=== PATIENT | female | born 1970 | race Caucasian/White ===

== ENCOUNTER 2016-06-14 13:33 | Outpatient (CLI) | payer MEDICAID | END 2016-06-14 23:59 | DX: I10 Essential (primary) hypertension (principal) ==

== ENCOUNTER 2017-03-15 09:48 | Outpatient (CLI) | payer MEDICAID ==
[2017-03-15 13:12] LABS: BASOPHILS # (AUTO) 0.1 10^3/uL (0.0-0.1); BASOPHILS % (AUTO) 0.7 %; EOSINOPHILS # (AUTO) 0.1 10^3/uL (0.0-0.7); EOSINOPHILS % (AUTO) 1.3 %; HCT - HEMATOCRIT 41.3 % (37.0-47.0); HGB - HEMOGLOBIN 14.3 g/dL (12.0-16.0); LYMPHOCYTES # (AUTO) 2.4 10^3/uL (1.5-3.5); LYMPHOCYTES % (AUTO) 30.6 %; MEAN CORPUSCULAR HEMOGLOBIN 34.3 pg (27.0-31.0); MEAN CORPUSCULAR HGB CONC 34.5 g/dL (32.0-36.0); MEAN CORPUSCULAR VOLUME 99.2 fL (81.0-99.0); MEAN PLATELET VOLUME 8.5 fL (7.9-10.8); MONOCYTES # (AUTO) 0.6 10^3/uL (0.0-1.0); MONOCYTES % (AUTO) 7.8 %; NEUTROPHILS # (AUTO) 4.7 10^3/uL (1.5-6.6); NEUTROPHILS % (AUTO) 59.6 %; RED BLOOD COUNT 4.16 10^6/uL (4.20-5.40); RED CELL DISTRIBUTION WIDTH 13.9 % (12.0-15.0); UNCORRECTED WHITE BLOOD COUNT 7.9 x10^3/uL; WHITE BLOOD COUNT 7.9 x10^3/uL (4.8-10.8)
[2017-03-15 14:03] LABS: ALBUMIN/GLOBULIN RATIO 1.1 (1.0-2.2); BILIRUBIN,TOTAL 0.4 mg/dL (0.2-1.0); BUN - BLOOD UREA NITROGEN 5 mg/dL (6-20); CALCIUM 9.9 mg/dL (8.5-10.3); CARBON DIOXIDE - CO2 25 mmol/L (21-32); CHLORIDE 96 mmol/L (101-111); CHOL/HDL RATIO 2.8 (<4.4); CHOLESTEROL 232 mg/dL; CREATININE 0.4 mg/dL (0.4-1.0); GFR - MDRD 170 (>89); GLUCOSE 116 mg/dL (70-100); HDL CHOLESTEROL 84 mg/dL; LDL/HDL RATIO 1.6 (<4.4); POTASSIUM 3.4 mmol/L (3.5-5.0); SODIUM 132 mmol/L (135-145); TOTAL PROTEIN 8.3 g/dL (6.7-8.2); TRIGLYCERIDES 84 mg/dL; VLDL CHOLESTEROL 17 mg/dL
== END 2017-03-15 09:49 | disposition home or self-care (01) ==
LOC: LAB.N 09:48
PROVIDERS: ATTEND Family Medicine
DX: R74.0 Nonspecific elevation of levels of transaminase and lactic acid dehydrogenase [LDH] (principal); F10.10 Alcohol abuse, uncomplicated; I10 Essential (primary) hypertension
CPT/HCPCS: 36415; 80050; 80061

== ENCOUNTER 2017-05-28 11:13 | Emergency (ER) | payer MEDICAID ==
--- NOTE | 2017-05-28 12:44 | XRAY Report ---
EXAM: CHEST RADIOGRAPHY EXAM DATE: 05/28/2017 12:19 PM. CLINICAL HISTORY: Cough. COMPARISON: 08/17/2015. TECHNIQUE: 2 views. FINDINGS: Lungs/Pleura: No focal consolidation evident. No pleural effusion. No pneumothorax. Normal volumes. Mediastinum: Heart and mediastinal contours are unremarkable. Other: Cholecystectomy clips. IMPRESSION: No radiographically apparent acute abnormality in the chest. No significant change from p rior. [facility] Referring Provider Line: [phone] SITE ID: [id number]
--- NOTE | 2017-05-28 12:46 | ED Physician Documentation ---
PD HPI URI - Stated complaint Stated Complaint: ITCHY THROAT,COUGH,RIB PX - Chief complaint Chief Complaint: Resp - History obtained from History obtained from: Patient - History of Present Illness Timing duration: Days Timing details: Gradual onset, Still present Associated symptoms: Fever, Chills, Sweats, Nasal congestion, Swollen nodes, Dry cough, Chest pain (with coughing). No: Sore throat Contributing factors: No: Sick contact, Travel, Immunocompromised Improves by: Rest Worsened by: Activity, Breathing Similar symptoms before: Has not had sx before Recently seen: Not recently seen Review of Systems Constitutional: reports: Fever, Chills, Myalgias, Fatigue Nose: reports: Congestion Throat: denies: Sore throat Respiratory: reports: Cough GI: reports: Nausea. denies: Vomiting, Diarrhea Skin: denies: Rash, Lesions PD PAST MEDICAL HISTORY - Past Medical History Past Medical History: Yes Cardiovascular: Hypertension Respiratory: Asthma, COPD, Other Neuro: None Endocrine/Autoimmune: None GI: Diverticulitis DIVERSIONAL THERAPIST: None : None HEENT: None Psych: Anxiety Musculoskeletal: None Derm: None - Past Surgical History Past Surgical History: Yes General: Appendectomy /DIVERSIONAL THERAPIST: section, Hysterectomy - Present Medications Home Medications: Ambulatory Orders Medication Instructions Recorded Confirmed Albuterol [Ventolin Hfa] 1 puffs ORAL Q6HR PRN 09/01/13 05/28/17 Aspirin Chewable [St Mitch 81 mg PO DAILY 09/01/13 05/28/17 Aspirin] Cromolyn Sodium [Nasal Allergy 1 ml NS DAILY 09/01/13 05/28/17 [place]] amLODIPine [Norvasc] 10 mg PO DAILY 09/01/13 05/28/17 Loratadine 1 mg PO DAILY 08/17/15 05/28/17 hydrOXYzine pamoate [Hydroxyzine 1 mg PO DAILY 11/23/15 05/28/17 Pamoate] Benzonatate [Tessalon] 100 mg PO TID PRN #25 capsule 05/28/17 Dexamethasone [Decadron] 4 mg PO DAILY #5 tablet 05/28/17 guaiFENesin/CODEINE [Robitussin AC] 10 ml PO Q6H PRN #240 ml 05/28/17 - Allergies Allergies/Adverse Reactions: Allergies Allergy/AdvReac Type Severity Reaction Status Date / Time No Known Drug Allergies Allergy Verified 11/24/15 09:58 - Social History Does the pt smoke?: Yes Smoking Status: Current every day smoker Does the pt drink ETOH?: Yes Does the pt have substance abuse?: Yes - Immunizations Immunizations are current?: Yes - POLST Patient has POLST: No PD ED PE NORMAL - Vitals Vital signs reviewed: Yes - General General: Alert and oriented X 3, No acute distress, Well developed/nourished - HEENT HEENT: Ears normal, Pharynx benign - Neck Neck: Supple, no meningeal sign, No adenopathy - Cardiac Cardiac: RRR, No murmur - Respiratory Respiratory: Clear bilaterally - Abdomen Abdomen: Soft, Non tender - Female Female : Deferred - Rectal Rectal: Deferred - Back Back: No CVA TTP - Derm Derm: Normal color, Warm and dry, No rash Results - Vitals Vitals: Oxygen O2 Source Room air - Rads (name of study) chest Radiology: Prelim report reviewed (normal) PD MEDICAL DECISION MAKING - ED course Complexity details: considered differential, d/w patient Departure - Departure Disposition: 01 Home, Self Care Clinical Impression: Upper respiratory infection Qualifiers: URI type: unspecified URI Qualified Code(s): J06.9 - Acute upper respiratory infection, unspecified Condition: Stable Record reviewed to determine appropriate education?: Yes Instructions: ED Upper Resp Infec No Abx Tx Follow-Up: Kavin Monet MD [Primary Care Provider] - Prescriptions: Benzonatate [Tessalon] 100 mg PO TID PRN #25 capsule PRN Reason: Cough Dexamethasone [Decadron] 4 mg PO DAILY #5 tablet guaiFENesin/CODEINE [Robitussin AC] 10 ml PO Q6H PRN #240 ml PRN Reason: Cough Comments: Use your albuterol inhaler 2 puffs 4 times a day and extra times if needed for wheezing and cough. Use Decadron steroid anti-inflammatory daily for the next 5 days to reduce bronchial irritation and inflammation. This will decrease the cough and symptoms as well. Add Tessalon if needed for coughing. Drink lots of fluids and use Tylenol or ibuprofen if needed for fevers and pains. Your chest x-ray is clear without any signs of pneumonia. Discharge Date/Time: 05/28/17 13:50
[2017-05-28 13:10] VITALS: BP 116/85
[2017-05-28] MEDS ORDERED: DEXAMETHASONE 10 MG/ML VIAL PO STA (13:23)
[2017-05-28] MEDS ORDERED: CHERRY SYRUP 10 ML UDC PO ONE (13:34)
[2017-05-28] MEDS: BENZONATATE 100 MG CAPSULE PO STA ×2 (13:38→13:46)
== END 2017-05-28 13:50 | disposition home or self-care (01) ==
LOC: ED 11:13
DX: J06.9 Acute upper respiratory infection, unspecified (principal); I10 Essential (primary) hypertension
CPT/HCPCS: 71046; 99283; A9270

== ENCOUNTER 2017-08-26 08:00 | Outpatient (CLI) | payer MEDICAID ==
[2017-08-26 19:00] LABS: BASOPHILS # (AUTO) 0.1 10^3/uL (0.0-0.1); BASOPHILS % (AUTO) 0.7 %; EOSINOPHILS # (AUTO) 0.1 10^3/uL (0.0-0.7); EOSINOPHILS % (AUTO) 0.8 %; LYMPHOCYTES # (AUTO) 2.3 10^3/uL (1.5-3.5); LYMPHOCYTES % (AUTO) 24.3 %; MEAN CORPUSCULAR HEMOGLOBIN 32.3 pg (27.0-31.0); MEAN CORPUSCULAR HGB CONC 33.5 g/dL (32.0-36.0); MEAN CORPUSCULAR VOLUME 96.2 fL (81.0-99.0); MONOCYTES # (AUTO) 0.9 10^3/uL (0.0-1.0); MONOCYTES % (AUTO) 9.2 %; NEUTROPHILS # (AUTO) 6.1 10^3/uL (1.5-6.6); PLT - PLATELET COUNT 297 10^3/uL (130-450); RED BLOOD COUNT 4.65 10^6/uL (4.20-5.40); RED CELL DISTRIBUTION WIDTH 14.3 % (12.0-15.0); WHITE BLOOD COUNT 9.4 x10^3/uL (4.8-10.8)
[2017-08-26 19:13] LABS: ALBUMIN 4.5 g/dL (3.2-5.5); ALBUMIN/GLOBULIN RATIO 1.3 (1.0-2.2); BILIRUBIN,TOTAL 0.5 mg/dL (0.2-1.0); CALCIUM 9.5 mg/dL (8.5-10.3); CREATININE 0.5 mg/dL (0.4-1.0)
== END 2017-08-26 08:01 | disposition home or self-care (01) ==
LOC: LAB.N 08:00
PROVIDERS: ATTEND Family Medicine
DX: F10.10 Alcohol abuse, uncomplicated (principal); I10 Essential (primary) hypertension
CPT/HCPCS: 36415; 80053; 85025

== ENCOUNTER 2017-12-03 13:48 | Outpatient (CLI) | payer MEDICAID ==
[2017-12-03 19:09] LABS: BUN - BLOOD UREA NITROGEN < 5 mg/dL (6-20); CALCIUM 9.7 mg/dL (8.5-10.3); CARBON DIOXIDE - CO2 23 mmol/L (21-32); CHLORIDE 97 mmol/L (101-111); CREATININE 0.4 mg/dL (0.4-1.0); GFR - MDRD 170 (>89); GLUCOSE 125 mg/dL (70-100); SODIUM 131 mmol/L (135-145)
== END 2017-12-03 13:49 | disposition home or self-care (01) ==
LOC: LAB.N 13:48
PROVIDERS: ATTEND Family Medicine
DX: E87.1 Hypo-osmolality and hyponatremia (principal); F10.10 Alcohol abuse, uncomplicated
CPT/HCPCS: 36415; 80048

== ENCOUNTER 2018-05-12 13:03 | Emergency (ER) | payer MEDICAID ==
[2018-05-12 13:39] VITALS: BP 160/106
[2018-05-12] MEDS ORDERED: IBUPROFEN 400 MG TABLET PO STA (14:29)
--- NOTE | 2018-05-12 14:44 | ED Physician Documentation ---
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 by [facility] at [place] a week ago no meds rx after surgery inc pain and swelling called ENT today and they were in [place] office and she could not get there so advised to come to the ER she states no fever able to breathe hard to stay hydrated 2/2 pain Review of Systems Throat: reports: Other (tongue pain) PD PAST MEDICAL HISTORY - Past Medical History Cardiovascular: Hypertension Respiratory: Asthma, COPD, Other Endocrine/Autoimmune: None GI: Diverticulitis REMOTE SENSING SPECIALIST: None : None HEENT: None Psych: Anxiety Musculoskeletal: None Derm: None - Past Surgical History Past Surgical History: Yes General: Appendectomy /REMOTE SENSING SPECIALIST: section, Hysterectomy - Present Medications Home Medications: Ambulatory Orders Medication Instructions Recorded Confirmed Aspirin Chewable [St Mitch 81 mg PO DAILY 09/01/13 05/28/17 Aspirin] Loratadine 1 mg PO DAILY 08/17/15 05/28/17 hydrOXYzine pamoate [Hydroxyzine 1 mg PO DAILY 11/23/15 05/28/17 Pamoate] Hydrocodone/Acetaminophen 1 each PO Q6H PRN #10 tablet 05/12/18 [Hydrocodon-Acetaminophen 5-325] Ibuprofen [Motrin] 400 mg PO Q6H #30 tablet 05/12/18 - Allergies Allergies/Adverse Reactions: Allergies Allergy/AdvReac Type Severity Reaction Status Date / Time No Known Drug Allergies Allergy Verified 05/12/18 13:39 - Social History Does the pt smoke?: Yes Smoking Status: Current every day smoker Does the pt drink ETOH?: Yes Does the pt have substance abuse?: Yes - Immunizations Immunizations are current?: Yes - POLST Patient has POLST: No PD ED PE NORMAL - Vitals Vital signs reviewed: Yes - HEENT HEENT: Other (biopsy site to lower aspect right side of rongue with some focal swelling not extending to base of tongue or submandibular region, no bleeding or discharge, no adenopathy) - Cardiac Cardiac: RRR - Respiratory Respiratory: No respiratory distress, Clear bilaterally Results - Vitals Vitals: Vital Signs - 24 hr 05/12/18 13:36 Temperature 37.1 C Heart Rate 84 Respiratory 16 Rate Blood Pressure 160/106 H O2 Saturation 98 Oxygen O2 Source Room air PD MEDICAL DECISION MAKING - ED course ED course: post op tongue surgery some swelling no airway obstruction no submandibular extension does not appear infected for today and tomorrow / [place] will manage pain'and then she should see her surgical group Wed for a recheck Departure - Departure Disposition: Home, Self Care Clinical Impression: Post-operative pain Condition: Good Prescriptions: Hydrocodone/Acetaminophen [Hydrocodon-Acetaminophen 5-325] 1 each PO Q6H PRN #10 tablet PRN Reason: Severe Pain Ibuprofen [Motrin] 400 mg PO Q6H #30 tablet Comments: Please follow up with your surgeon Wed Return if worse
== END 2018-05-12 15:22 | disposition home or self-care (01) ==
LOC: ED 13:03
DX: K14.6 Glossodynia (principal); G89.18 Other acute postprocedural pain; I10 Essential (primary) hypertension; F17.200 Nicotine dependence, unspecified, uncomplicated
CPT/HCPCS: 99283; A9270

== ENCOUNTER 2018-08-18 22:02 | Emergency (ER) | payer MEDICAID ==
--- NOTE | 2018-08-18 23:14 | ED Physician Documentation ---
PD HPI FEMALE - Stated complaint Stated Complaint: LT SIDE PX - Chief complaint Chief Complaint: Abd Pain - History obtained from History obtained from: Patient - History of Present Illness Timing - onset: Yesterday Timing - duration: Days (2) Timing - details: Gradual onset, Still present Associated symptoms: Abdominal pain (pain LLQ/pelvic area since yesterday, gradually worsening.). No: Fever, Back pain, Vaginal discharge, Genital sore/lesion, Dysuria Contributing factors: No: Exposed to STD Similar symptoms before: Diagnosis (prior records show history of diverticulitis, which she had forgotten about. She was thinking it was ovarian cyst.) Recently seen: Not recently seen Review of Systems Constitutional: denies: Fever, Chills, Myalgias Nose: denies: Rhinorrhea / runny nose, Congestion Throat: denies: Sore throat Cardiac: denies: Chest pain / pressure Respiratory: denies: Cough GI: reports: Abdominal Pain, Nausea. denies: Vomiting, Constipation, Diarrhea : denies: Dysuria, Frequency, Discharge Skin: denies: Rash PD PAST MEDICAL HISTORY - Past Medical History Cardiovascular: Hypertension Respiratory: Asthma, COPD, Other Endocrine/Autoimmune: None GI: Diverticulitis SOLE ASSESSOR: None : None HEENT: None Psych: Anxiety Musculoskeletal: None Derm: None - Past Surgical History Past Surgical History: Yes General: Appendectomy /SOLE ASSESSOR: section, Hysterectomy - Present Medications Home Medications: Ambulatory Orders Medication Instructions Recorded Confirmed Aspirin Chewable [St Mitch 81 mg PO DAILY 09/01/13 05/28/17 Aspirin] Loratadine 1 mg PO DAILY 08/17/15 05/28/17 hydrOXYzine pamoate [Hydroxyzine 1 mg PO DAILY 11/23/15 05/28/17 Pamoate] Hydrocodone/Acetaminophen 1 each PO Q6H PRN #10 tablet 05/12/18 [Hydrocodon-Acetaminophen 5-325] Ibuprofen [Motrin] 400 mg PO Q6H #30 tablet 05/12/18 Metronidazole [Flagyl] 500 mg PO BID #20 tablet 08/19/18 Naproxen 500 mg PO BID #20 tablet 08/19/18 Sulfamethox/Trimeth 800/160 1 each PO BID #14 tablet 08/19/18 [Bactrim Ds 800/160] - Allergies Allergies/Adverse Reactions: Allergies Allergy/AdvReac Type Severity Reaction Status Date / Time No Known Drug Allergies Allergy Verified 05/12/18 13:39 - Social History Does the pt smoke?: Yes Smoking Status: Current every day smoker Does the pt drink ETOH?: Yes Does the pt have substance abuse?: Yes - Immunizations Immunizations are current?: Yes - POLST Patient has POLST: No PD ED PE NORMAL - Vitals Vital signs reviewed: Yes - General General: Alert and oriented X 3, No acute distress, Well developed/nourished - HEENT HEENT: Pharynx benign - Neck Neck: Supple, no meningeal sign, No adenopathy - Cardiac Cardiac: RRR, No murmur - Respiratory Respiratory: Clear bilaterally - Abdomen Abdomen: Normal bowel sounds, Soft, Non distended, No organomegaly, Other (LLQ tender with some local guarding but no percussion nor rebound tenderness. ) - Female Female : Deferred - Rectal Rectal: Deferred - Back Back: No CVA TTP - Derm Derm: Normal color, No rash - Extremities Extremities: No edema, No calf tenderness / cord - Neuro Neuro: Alert and oriented X 3, No motor deficit, Normal speech Results - Vitals Vitals: Vital Signs - 24 hr 08/18/18 08/19/18 08/19/18 22:14 00:37 01:49 Temperature 37 C 36.7 C 36.4 C L Heart Rate 100 96 84 Respiratory 16 14 18 Rate Blood Pressure 173/94 H 131/84 H 119/79 O2 Saturation 99 97 96 Oxygen O2 Source Room air - Labs Labs: Laboratory Tests 08/18/18 23:30 Urine Color YELLOW Urine Clarity CLEAR Urine pH 6.0 Ur Specific [place] 1.010 Urine Protein NEGATIVE Urine Glucose (UA) NEGATIVE Urine Ketones NEGATIVE Urine Occult Blood NEGATIVE Urine Nitrite NEGATIVE Urine Bilirubin NEGATIVE Urine Urobilinogen 0.2 (NORMAL) Ur Leukocyte Esterase NEGATIVE Ur Microscopic Review NOT INDICATED Urine Culture Comments NOT INDICATED - Rads (name of study) abd CT Radiology: Prelim report reviewed (acute uncomplicated sigmoid diverticulitis. ), EMP read contemporaneously PD MEDICAL DECISION MAKING - ED course Complexity details: considered differential, d/w patient Departure - Departure Disposition: 01 Home, Self Care Clinical Impression: Acute diverticulitis Abdominal pain Qualifiers: Abdominal location: left lower quadrant Qualified Code(s): R10.32 - Left lower quadrant pain Condition: Stable Record reviewed to determine appropriate education?: Yes Instructions: ED Diverticulitis Follow-Up: Konstantin Coronado PA-C [Primary Care Provider] - Prescriptions: Metronidazole [Flagyl] 500 mg PO BID #20 tablet Naproxen 500 mg PO BID #20 tablet Sulfamethox/Trimeth 800/160 [Bactrim Ds 800/160] 1 each PO BID #14 tablet Comments: Stay well-hydrated. Use anti-inflammatories such as naproxen twice daily for the next 7-10 days. For the infection of the diverticulitis, use Bactrim and Flagyl twice daily for a week. Add Tylenol if needed for pain. Recheck if not improved over the next several days and return sooner if worsening. Discharge Date/Time: 08/19/18 02:02
[2018-08-18] MEDS ORDERED: IBUPROFEN 600 MG TABLET PO STA (23:39)
[2018-08-18] MEDS ORDERED: ONDANSETRON ODT 4 MG TABLET TL STA (23:39)
[2018-08-18] MEDS ORDERED: HYDROcod/ACETAM 5/325 MG TABLET PO STA (23:40)
[2018-08-18 23:47] LABS: BILIRUBIN,URINE NEGATIVE (NEGATIVE); GLUCOSE, URINE (UA) NEGATIVE (NEGATIVE); KETONES,URINE (UA) NEGATIVE (NEGATIVE); LEUKOCYTE ESTERASE, URINE NEGATIVE (NEGATIVE); NITRITE,URINE NEGATIVE (NEGATIVE); OCCULT BLOOD,URINE NEGATIVE (NEGATIVE); PROTEIN,URINE NEGATIVE (NEGATIVE); UROBILINOGEN,URINE 0.2 (NORMAL) E.U./dL (NORMAL)
[2018-08-18 23:48] LABS: CLARITY,URINE CLEAR (CLEAR)
--- NOTE | 2018-08-19 00:44 | CT Report ---
Reason: LLQ pain since yesterday Procedure Date: 08/19/2018 Accession Number: [id number] / [id number] Procedure: CT - Abdomen/Pelvis WO CPT Code: FULL RESULT: EXAM: CT ABDOMEN AND PELVIS (CT KUB) EXAM DATE: 08/19/2018 12:02 AM. CLINICAL HISTORY: LLQ pain since yesterday. COMPARISONS: ABDOMEN/PELVIS W/ 09/28/2015 2:03 PM. TECHNIQUE: Routine helical CT imaging was performed through the abdomen and pelvis without intravenous contrast. Lack of intravenous contrast can at times limit scan sensitivity, particularly for the detection of intraparenchymal and vascular pathology. Reconstructions: Coronal and sagittal. In accordance with CT protocol optimization, one or more of the following dose reduction techniques were utilized for this exam: automated exposure control, adjustment of mA and/or KV based on patient size, or use of iterative reconstructive technique. FINDINGS: ABDOMEN: Lung Bases: Incompletely included lower lungs are grossly clear. Heart size is within normal limits. No basilar effusions. Liver: Unremarkable. Gallbladder/Bile Ducts: Status post cholecystectomy. Visualized biliary tree is normal caliber. Spleen: Unremarkable. Pancreas: Unremarkable. Adrenal Glands: Unremarkable. Kidneys: No calculi or hydronephrosis. Peritoneum/Mesentery/Bowel: No free fluid, free air, or collection. No bowel obstruction. Proximal sigmoid acute diverticulitis. The appendix is within normal limits. Lymph nodes: No mesenteric, periportal, or retroperitoneal lymphadenopathy. PELVIS: The bladder is unremarkable for the degree of distention. Uterus is absent. No pelvic lymphadenopathy. Retroperitoneum: Abdominal aorta is nonaneurysmal. Bones: No suspicious osseous lesions. IMPRESSION: Acute sigmoid diverticulitis. No free air or abscess. [facility]
[2018-08-19] MEDS ORDERED: metroNIDAZOLE 250 MG TABLET PO STA (01:37)
[2018-08-19] MEDS ORDERED: SULFAMETH/TRIMETH DS 800/160 MG TABLET PO STA (01:37)
[2018-08-19 01:49] VITALS: BP 119/79
== END 2018-08-19 02:02 | disposition home or self-care (01) ==
LOC: ED 22:02
DX: K57.92 Diverticulitis of intestine, part unspecified, without perforation or abscess without bleeding (principal); I10 Essential (primary) hypertension; F17.200 Nicotine dependence, unspecified, uncomplicated
CPT/HCPCS: 74176; 81003; 99283; 99284; A9270; Q0162; 81001; 87086

== ENCOUNTER 2018-08-19 13:38 | Outpatient (CLI) | payer MEDICAID ==
[2018-08-19 18:48] LABS: BASOPHILS % (AUTO) 0.3 %; EOSINOPHILS # (AUTO) 0.1 10^3/uL (0.0-0.7); EOSINOPHILS % (AUTO) 0.9 %; HGB - HEMOGLOBIN 14.8 g/dL (12.0-16.0); LYMPHOCYTES % (AUTO) 24.9 %; MEAN CORPUSCULAR HEMOGLOBIN 32.6 pg (27.0-31.0); MEAN CORPUSCULAR HGB CONC 33.9 g/dL (32.0-36.0); MEAN CORPUSCULAR VOLUME 96.1 fL (81.0-99.0); MEAN PLATELET VOLUME 9.6 fL (7.9-10.8); NEUTROPHILS # (AUTO) 4.9 10^3/uL (1.5-6.6); NEUTROPHILS % (AUTO) 61.9 %; PLT - PLATELET COUNT 157 10^3/uL (130-450); RED BLOOD COUNT 4.54 10^6/uL (4.20-5.40); RED CELL DISTRIBUTION WIDTH 14.1 % (12.0-15.0)
[2018-08-19 19:20] LABS: ALBUMIN 3.8 g/dL (3.2-5.5); ALKALINE PHOSPHATASE 63 IU/L (42-121); ALT ALANINE AMINOTRANSFERASE 24 IU/L (10-60); AST ASPARTATE AMINOTRANSFERASE 28 IU/L (10-42); BILIRUBIN,TOTAL 0.8 mg/dL (0.2-1.0); BUN - BLOOD UREA NITROGEN < 5 mg/dL (6-20); CALCIUM 9.5 mg/dL (8.5-10.3); CARBON DIOXIDE - CO2 24 mmol/L (21-32); CHLORIDE 93 mmol/L (101-111); CHOLESTEROL 143 mg/dL; CREATININE 0.5 mg/dL (0.4-1.0); GFR - MDRD 131 (>89); GLUCOSE 116 mg/dL (70-100); HDL CHOLESTEROL 72 mg/dL; LDL CHOLESTEROL,CALCULATED 55 mg/dL; LDL/HDL RATIO 0.8 (<4.4); SODIUM 128 mmol/L (135-145); TOTAL PROTEIN 7.6 g/dL (6.7-8.2); VLDL CHOLESTEROL 16 mg/dL
== END 2018-08-19 23:59 | disposition home or self-care (01) ==
LOC: LAB.N 13:38
PROVIDERS: ATTEND Physician Assistant Medical
DX: Z00.00 Encounter for general adult medical examination without abnormal findings (principal); F10.20 Alcohol dependence, uncomplicated; F17.210 Nicotine dependence, cigarettes, uncomplicated
CPT/HCPCS: 36415; 80050; 80061; 83721

== ENCOUNTER 2018-11-11 22:15 | Emergency (ER) | payer MEDICAID ==
--- NOTE | 2018-11-11 22:31 | ED Physician Documentation ---
PD HPI LOWER EXT INJURY - Stated complaint Stated Complaint: FOOT PX - Chief complaint Chief Complaint: Trauma Ext - History obtained from History obtained from: Patient - History of Present Illness PD HPI LOW EXT INJURY LOCATION: Left (She twisted her left ankle this morning and has difficulty walking. No other injuries. She declines pain medication on initial evaluation.) Review of Systems Constitutional: reports: Reviewed and negative Cardiac: reports: Reviewed and negative Respiratory: reports: Reviewed and negative PD PAST MEDICAL HISTORY - Past Medical History Cardiovascular: Hypertension Respiratory: Asthma, COPD, Other Endocrine/Autoimmune: None GI: Diverticulitis APPLICATION DBA: None : None HEENT: None Psych: Anxiety Musculoskeletal: None Derm: None - Past Surgical History Past Surgical History: Yes General: Appendectomy /APPLICATION DBA: section, Hysterectomy - Present Medications Home Medications: Ambulatory Orders Medication Instructions Recorded Confirmed Aspirin Chewable [St Mitch 81 mg PO DAILY 09/01/13 05/28/17 Aspirin] Loratadine 1 mg PO DAILY 08/17/15 05/28/17 hydrOXYzine pamoate [Hydroxyzine 1 mg PO DAILY 11/23/15 05/28/17 Pamoate] Hydrocodone/Acetaminophen 1 each PO Q6H PRN #10 tablet 05/12/18 [Hydrocodon-Acetaminophen 5-325] Ibuprofen [Motrin] 400 mg PO Q6H #30 tablet 05/12/18 Metronidazole [Flagyl] 500 mg PO BID #20 tablet 08/19/18 Naproxen 500 mg PO BID #20 tablet 08/19/18 Sulfamethox/Trimeth 800/160 1 each PO BID #14 tablet 08/19/18 [Bactrim Ds 800/160] - Allergies Allergies/Adverse Reactions: Allergies Allergy/AdvReac Type Severity Reaction Status Date / Time No Known Drug Allergies Allergy Verified 05/12/18 13:39 - Social History Does the pt smoke?: Yes Smoking Status: Current every day smoker Does the pt drink ETOH?: Yes Does the pt have substance abuse?: Yes - Immunizations Immunizations are current?: Yes - POLST Patient has POLST: No PD ED PE NORMAL - Vitals Vital signs reviewed: Yes - General General: Alert and oriented X 3, No acute distress, Other (Smells of alcohol) - Extremities Extremities: Other (Tender to the ATFL more than the lateral muscle no medial malleolar, posterior tenderness or other foot tenderness.) - Neuro Neuro: Alert and oriented X 3, Normal speech Results - Vitals Vitals: Vital Signs - 24 hr 11/11/18 22:21 Temperature 36.5 C Heart Rate 86 Respiratory 16 Rate Blood Pressure 123/75 O2 Saturation 96 Oxygen O2 Source Room air PD MEDICAL DECISION MAKING - ED course ED course: This is a 56-year-old woman who presents by private vehicle with an appearant left ankle sprain. She does seem somewhat intoxicated here. On the initial views of the ankle I did not see her fracture except there was an abnormality on the lateral view of what looks like the navicular, this was confirmed on dedicated foot x-rays. Given her intoxicated status and did not really want to put her in fiberglass and up on crutches, I suspect that would lead to more significant subsequent injuries. I spoke with Dr. Canela by phone and he agrees and she is placed in a fracture boot and up on a walker. Departure - Departure Disposition: 01 Home, Self Care Clinical Impression: Left navicular fracture of foot Qualifiers: Encounter type: initial encounter Fracture type: closed Fracture alignment: nondisplaced Qualified Code(s): S92.255A - Nondisplaced fracture of navicular [scaphoid] of left foot, initial encounter for closed fracture Alcohol intoxication Qualifiers: Complication of substance-induced condition: uncomplicated Qualified Code(s): F10.920 - Alcohol use, unspecified with intoxication, uncomplicated Condition: Good Record reviewed to determine appropriate education?: Yes Health Concerns: She presents with left ankle and foot injury and is found to have a navicular fracture on x-ray, a pretty small chip fracture. Plan of Treatment: Avoid alcohol use. Wear the boot and use a walker for limited weightbearing. Follow-up with the orthopedic clinic, call tomorrow for appointment. Instructions: ED Alcohol Intoxication, ED Fx Foot Follow-Up: [facility] [Provider Group] - Within 1 week
--- NOTE | 2018-11-11 23:15 | XRAY Report ---
Reason: ankle inj Procedure Date: 11/11/2018 Accession Number: [id number] / [id number] Procedure: XR - Ankle 3 View LT CPT Code: FULL RESULT: EXAM: LEFT ANKLE RADIOGRAPHY EXAM DATE: 11/11/2018 10:48 PM. CLINICAL HISTORY: Ankle inj. COMPARISON: None TECHNIQUE: 3 views. FINDINGS: Bones: Acute mildly displaced fracture of the dorsal talus, best seen on lateral view. Joints: No subluxations. Soft Tissues: Unremarkable. IMPRESSION: Acute mildly displaced fracture of the dorsal talus. [facility]
[2018-11-11 23:24] VITALS: BP 144/100
--- NOTE | 2018-11-11 23:46 | XRAY Report ---
Reason: foot inj Procedure Date: 11/11/2018 Accession Number: [id number] / [id number] Procedure: XR - Foot 3 View LT CPT Code: FULL RESULT: EXAM: LEFT FOOT RADIOGRAPHY EXAM DATE: 11/11/2018 11:13 PM. CLINICAL HISTORY: Foot inj. COMPARISON: FOOT 3 VIEW RT 09/16/2014 11:13 PM. TECHNIQUE: 3 views. FINDINGS: Bones: Normal. No fractures or bone lesions. Joints: There is mild bunion deformity. Soft Tissues: Normal. No soft tissue swelling. IMPRESSION: No evidence for acute injuries to the left foot. [facility]
== END 2018-11-11 23:30 | disposition home or self-care (01) ==
LOC: ED 22:15
DX: S92.255A Nondisplaced fracture of navicular [scaphoid] of left foot, initial encounter for closed fracture (principal); X50.1XXA Overexertion from prolonged static or awkward postures, initial encounter; Y92.512 Supermarket, store or market as the place of occurrence of the external cause; F10.920 Alcohol use, unspecified with intoxication, uncomplicated; I10 Essential (primary) hypertension; F17.200 Nicotine dependence, unspecified, uncomplicated; Z79.82 Long term (current) use of aspirin
CPT/HCPCS: 99283

== ENCOUNTER 2019-02-12 14:35 | Outpatient (CLI) | payer MEDICAID ==
[2019-02-12 18:47] LABS: BASOPHILS % (AUTO) 0.5 %; EOSINOPHILS # (AUTO) 0.1 10^3/uL (0.0-0.7); EOSINOPHILS % (AUTO) 1.9 %; HGB - HEMOGLOBIN 14.8 g/dL (12.0-16.0); LYMPHOCYTES # (AUTO) 1.8 10^3/uL (1.5-3.5); LYMPHOCYTES % (AUTO) 30.9 %; MEAN CORPUSCULAR HEMOGLOBIN 32.2 pg (27.0-31.0); MEAN CORPUSCULAR HGB CONC 33.3 g/dL (32.0-36.0); MEAN CORPUSCULAR VOLUME 96.9 fL (81.0-99.0); MEAN PLATELET VOLUME 10.8 fL (7.9-10.8); MONOCYTES # (AUTO) 0.7 10^3/uL (0.0-1.0); MONOCYTES % (AUTO) 12.6 %; NEUTROPHILS # (AUTO) 3.1 10^3/uL (1.5-6.6); NEUTROPHILS % (AUTO) 53.8 %; PLT - PLATELET COUNT 163 10^3/uL (130-450); RED BLOOD COUNT 4.59 10^6/uL (4.20-5.40); RED CELL DISTRIBUTION WIDTH 14.2 % (12.0-15.0); WHITE BLOOD COUNT 5.7 x10^3/uL (4.8-10.8)
[2019-02-12 19:05] LABS: BUN - BLOOD UREA NITROGEN < 5 mg/dL (6-20); CALCIUM 9.1 mg/dL (8.5-10.3); CARBON DIOXIDE - CO2 27 mmol/L (21-32); CHLORIDE 96 mmol/L (101-111); CREATININE 0.5 mg/dL (0.4-1.0); GFR - MDRD 131 (>89); GLUCOSE 116 mg/dL (70-100); SODIUM 132 mmol/L (135-145)
== END 2019-02-12 23:59 | disposition home or self-care (01) ==
LOC: LAB.N 14:35
PROVIDERS: ATTEND Physician Assistant Medical
DX: I10 Essential (primary) hypertension (principal)
CPT/HCPCS: 36415; 80048; 85025

== ENCOUNTER 2019-03-03 15:15 | Outpatient (CLI) | payer MEDICAID ==
--- NOTE | 2019-03-03 20:20 | XRAY Report ---
Reason: RIGHT HIP PAIN Procedure Date: 03/03/2019 Accession Number: [id number] / [id number] Procedure: XRN - Hip w/Pelvis 2-3V RT CPT Code: FULL RESULT: EXAM: PELVIS AND RIGHT HIP RADIOGRAPHY EXAM DATE: 03/03/2019 03:35 PM HISTORY: RIGHT HIP PAIN. COMPARISON: None. TECHNIQUE: Single frontal view of the pelvis and frogleg lateral view of the RIGHT hip, 2 views total FINDINGS: Pelvis: The pelvic ring is intact. Mild bilateral SI joint degenerative arthritis. No significant focal lesion the pelvic bones. There is some calcification adjacent to the left greater trochanter. Correlate for calcific bursitis or abductor calcific tendinopathy. RIGHT hip: No focal bone lesion. Unremarkable joint space. IMPRESSION: Mild bilateral SI joint degenerative arthritis. Otherwise unremarkable pelvis and right hip. Calcification adjacent to the left greater trochanter is noted.
== END 2019-03-03 15:16 | disposition home or self-care (01) ==
LOC: DI.N 15:15
PROVIDERS: ATTEND Physician Assistant Medical
DX: M47.898 Other spondylosis, sacral and sacrococcygeal region (principal)

== ENCOUNTER 2019-11-24 16:54 | Outpatient (CLI) | payer MEDICAID ==
[2019-11-24 18:13] LABS: BASOPHILS # (AUTO) 0.1 10^3/uL (0.0-0.1); BASOPHILS % (AUTO) 0.7 %; EOSINOPHILS # (AUTO) 0.1 10^3/uL (0.0-0.7); EOSINOPHILS % (AUTO) 0.9 %; HGB - HEMOGLOBIN 14.5 g/dL (12.0-16.0); LYMPHOCYTES # (AUTO) 2.7 10^3/uL (1.5-3.5); LYMPHOCYTES % (AUTO) 35.1 %; MEAN CORPUSCULAR HEMOGLOBIN 32.3 pg (27.0-31.0); MEAN CORPUSCULAR VOLUME 92.2 fL (81.0-99.0); MEAN PLATELET VOLUME 9.8 fL (7.9-10.8); MONOCYTES # (AUTO) 0.6 10^3/uL (0.0-1.0); MONOCYTES % (AUTO) 7.9 %; NEUTROPHILS # (AUTO) 4.2 10^3/uL (1.5-6.6); NEUTROPHILS % (AUTO) 54.9 %; PLT - PLATELET COUNT 312 10^3/uL (130-450); RED BLOOD COUNT 4.49 10^6/uL (4.20-5.40); RED CELL DISTRIBUTION WIDTH 12.8 % (12.0-15.0); WHITE BLOOD COUNT 7.6 x10^3/uL (4.8-10.8)
[2019-11-24 18:46] LABS: ALBUMIN/GLOBULIN RATIO 1.1 (1.0-2.2); ALKALINE PHOSPHATASE 71 IU/L (42-121); ALT ALANINE AMINOTRANSFERASE 26 IU/L (10-60); AST ASPARTATE AMINOTRANSFERASE 32 IU/L (10-42); BILIRUBIN,TOTAL 0.5 mg/dL (0.2-1.0); BUN - BLOOD UREA NITROGEN < 5 mg/dL (6-20); CALCIUM 9.1 mg/dL (8.5-10.3); CARBON DIOXIDE - CO2 26 mmol/L (21-32); CHLORIDE 87 mmol/L (101-111); CHOL/HDL RATIO 2.7 (<4.4); CHOLESTEROL 172 mg/dL; CREATININE 0.4 mg/dL (0.4-1.0); GLUCOSE 143 mg/dL (70-100); HDL CHOLESTEROL 64 mg/dL; LDL CHOLESTEROL,CALCULATED 82 mg/dL; LDL/HDL RATIO 1.3 (<4.4); SODIUM 124 mmol/L (135-145); TOTAL PROTEIN 7.7 g/dL (6.7-8.2); VLDL CHOLESTEROL 26 mg/dL
== END 2019-11-24 23:59 | disposition home or self-care (01) ==
LOC: LAB.WCP 16:54
PROVIDERS: ATTEND Family Medicine
DX: I10 Essential (primary) hypertension (principal)
CPT/HCPCS: 36415; 80050; 80061; 83721

== ENCOUNTER 2019-12-04 12:57 | Outpatient (CLI) | payer MEDICAID ==
--- NOTE | 2019-12-04 15:25 | XRAY Report ---
PROCEDURE: Lumbar Spine Complete INDICATIONS: LBP TECHNIQUE: 5 views of the lumbar spine were acquired. COMPARISON: X-ray lumbar spine 05/01/2017 FINDINGS: Bones: 5 [id number] vertebrae are present. There is grade 1 anterolisthesis of L5 on S1, trace retrolisthesis of L2 on L3, L3 on L4, L4 on L5. There is moderate disc space narrowing at L3-4, L4-5 and L5-S1. No vertebral body compression fractures. No suspicious bony lesions. No significant for aminal narrowing on current exam. Soft tissues: Overlying bowel gas pattern is normal. No suspicious soft tissue calcifications. Cho lecystectomy clips. IMPRESSION: Multilevel degenerative changes as above. No significant interval progression. Reviewed by: Shilpa Victor MD on 12/04/2019 3:24 PM PDT Approved by: Shilpa Victor MD on 12/04/2019 3:24 PM PDT Station ID: [id number]
== END 2019-12-04 12:58 | disposition home or self-care (01) ==
LOC: DI.N 12:57
PROVIDERS: ATTEND Nurse Practitioner
DX: M51.36 Other intervertebral disc degeneration, lumbar region (principal); M79.604 Pain in right leg; M19.90 Unspecified osteoarthritis, unspecified site
CPT/HCPCS: 72110

== ENCOUNTER 2020-01-04 14:14 | Outpatient (CLI) | payer MEDICAID ==
[2020-01-04 18:33] LABS: BASOPHILS % (AUTO) 0.4 %; EOSINOPHILS % (AUTO) 0.4 %; HGB - HEMOGLOBIN 13.4 g/dL (12.0-16.0); LYMPHOCYTES # (AUTO) 1.3 10^3/uL (1.5-3.5); LYMPHOCYTES % (AUTO) 24.5 %; MEAN CORPUSCULAR HEMOGLOBIN 33.1 pg (27.0-31.0); MEAN CORPUSCULAR HGB CONC 34.4 g/dL (32.0-36.0); MEAN PLATELET VOLUME 11.4 fL (7.9-10.8); MONOCYTES # (AUTO) 0.7 10^3/uL (0.0-1.0); MONOCYTES % (AUTO) 13.3 %; NEUTROPHILS # (AUTO) 3.3 10^3/uL (1.5-6.6); PLT - PLATELET COUNT 121 10^3/uL (130-450); RED BLOOD COUNT 4.05 10^6/uL (4.20-5.40); RED CELL DISTRIBUTION WIDTH 14.2 % (12.0-15.0); WHITE BLOOD COUNT 5.4 x10^3/uL (4.8-10.8)
[2020-01-04 19:04] LABS: ALBUMIN 3.5 g/dL (3.2-5.5); ALBUMIN/GLOBULIN RATIO 0.9 (1.0-2.2); ALKALINE PHOSPHATASE 67 IU/L (42-121); ALT ALANINE AMINOTRANSFERASE 66 IU/L (10-60); AST ASPARTATE AMINOTRANSFERASE 113 IU/L (10-42); BILIRUBIN,TOTAL 0.6 mg/dL (0.2-1.0); BUN - BLOOD UREA NITROGEN < 5 mg/dL (6-20); CALCIUM 9.2 mg/dL (8.5-10.3); CARBON DIOXIDE - CO2 26 mmol/L (21-32); CHLORIDE 92 mmol/L (101-111); CREATININE 0.4 mg/dL (0.4-1.0); GLUCOSE 118 mg/dL (70-100); SODIUM 130 mmol/L (135-145); TOTAL PROTEIN 7.4 g/dL (6.7-8.2)
== END 2020-01-04 23:59 | disposition home or self-care (01) ==
LOC: LAB.WCP 14:14
PROVIDERS: ATTEND Family Medicine
DX: I10 Essential (primary) hypertension (principal); E87.6 Hypokalemia; E87.1 Hypo-osmolality and hyponatremia
CPT/HCPCS: 36415; 80053; 85025

== ENCOUNTER 2020-02-14 22:12 | Outpatient (CLI) | payer MEDICAID | END 2020-02-14 23:59 | disposition short-term general hospital (02) | LOC: EMS 22:12 | PROVIDERS: ATTEND Surgery | DX: R41.82 Altered mental status, unspecified (principal) | CPT/HCPCS: A0425; A0427; A0999 ==